=== PATIENT | male | born 1995 | race Hispanic/Latino ===

== ENCOUNTER 2017-11-22 20:58 | Emergency (ER) | payer SELFPAY ==
[2017-11-22] MEDS ORDERED: NA CHLORIDE 0.9% 1,000 ML ONE (21:41)
--- NOTE | 2017-11-22 21:45 | RAD REPORT ---
EXAM DESCRIPTION: RAD - Chest Pa And Lat (2 Views) - 11/22/2017 9:26 pm CLINICAL HISTORY: Shortness of breath COMPARISON: None. TECHNIQUE: PA and lateral views of the chest were obtained. FINDINGS: The lungs are clear. Heart size is normal and central vasculature is within normal limit s. No pleural effusion or pneumothorax seen. No acute bony finding noted. No aortic abnormality. IMPRESSION: No acute cardiopulmonary process.
[2017-11-22 21:52] LABS: Urine Blood NEGATIVE (NEG); Urine Glucose NEGATIVE (NEG); Urine Protein 2+ (NEG); Urine Specific Gravity >1.030 (1.005-1.030); Urine pH 5.5 (5.0-7.0)
[2017-11-22 21:52] LABS: Absolute Lymphocytes (CBC) 2.6 K/uL (0.7-4.9); Absolute Monocytes 0.8 K/uL (0.1-1.3); Absolute Neutrophil 5.4 K/uL (1.8-8.0); Basophils % 0.5 % (0-1.3); Eosinophils % 1.3 % (0-4.4); Hematocrit 43.3 % (39.6-49.0); Lymphocytes % 29.1 % (15.3-44.8); MCH 29.7 pg (27.0-35.0); MCV 87.3 fL (80-100); MPV 10.2 fL (7.6-11.3); Monocytes % 8.7 % (3.3-12.3); RBC Red Blood Cell Count 4.96 M/uL (4.33-5.43)
[2017-11-22 21:56] LABS: Urine Bacteria <20 /HPF (NONE SEEN); Urine RBC <5 /HPF (NONE SEEN)
[2017-11-22 21:57] LABS: Urine Culture Reflex Order NOT NEEDED
[2017-11-22 22:49] LABS: ALT/SGPT 92 U/L (12-78); AST/SGOT 42 U/L (15-37); Alkaline Phosphatase 136 U/L (45-117); BUN Blood Urea Nitrogen 13 mg/dL (7-18); Bicarbonate 26 mmol/L (21-32); Bilirubin Direct 0.1 mg/dL (0-0.2); Bilirubin Total 0.4 mg/dL (0.2-1.0); Creatine Phosphokinase 213 U/L (39-308); Glucose Level 91 mg/dL (74-106); Lipase 119 U/L (73-393); Potassium 3.1 mmol/L (3.5-5.1); Protein, Total 8.1 g/dL (6.4-8.2); Sodium Level 141 mmol/L (136-145)
[2017-11-22] MEDS ORDERED: POTASSIUM 25 MEQ EFFERV TAB ONE (23:02)
--- NOTE | 2017-11-22 23:07 | EDPHYS ---
Physician Documentation [facility] Name: Kunal North Age: 22 yrs Sex: Male : 1995 Arrival Date: 11/22/2017 Time: 21:01 Bed 19 Private MD: ED Physician Tigre Farris HPI: 11/22 23:14 This 22 yrs old Male presents to ER via Ambulatory with complaints of snw Shortness Of Breath, Dizziness. 23:14 The patient has shortness of breath at rest. Onset: The symptoms/episode began/occurred snw suddenly. Duration: The symptoms are continuous. The patient's shortness of breath is aggravated by exertion, walking. Associated signs and symptoms: Pertinent positives: dizziness, palpitations. Severity of symptoms: At their worst the symptoms were moderate severe in the emergency department the symptoms have improved. The patient has not experienced similar symptoms in the past. The patient has not recently seen a physician. pt took a fat burner and played in the sun and heat all day. When he sat down in his vehicle he began having palpitations, chest discomfort, and shortness of breath.. Historical: - Allergies: 21:11 No Known Allergies; bp - Home Meds: 21:11 None [Active]; bp - PMHx: 21:11 None; bp - Immunization history:: Adult Immunizations up to date. - Social history:: Smoking status: Patient/guardian denies using tobacco. - Ebola Screening: : Patient negative for fever greater than or equal to 101.5 degrees Fahrenheit, and additional compatible Ebola Virus Disease symptoms Patient denies exposure to infectious person Patient denies travel to an Ebola-affected area in the 21 days before illness onset No symptoms or risks identified at this time. ROS: 23:15 Eyes: Negative for injury, pain, redness, and discharge, ENT: Negative for injury, snw pain, and discharge, Neck: Negative for injury, pain, and swelling, Abdomen/GI: Negative for abdominal pain, nausea, vomiting, diarrhea, and constipation, Back: Negative for injury and pain, : Negative for injury, bleeding, discharge, and swelling, MS/Extremity: Negative for injury and deformity, Skin: Negative for injury, rash, and discoloration. 23:15 Constitutional: Positive for body aches, malaise, poor PO intake. 23:15 Cardiovascular: Positive for chest pain, palpitations. 23:15 Respiratory: Positive for shortness of breath, at rest. 23:15 Neuro: Positive for dizziness. Exam: 23:12 Constitutional: This is a well developed, well nourished patient who is awake, alert, snw and in no acute distress. Head/Face: Normocephalic, atraumatic. Eyes: Pupils equal round and reactive to light, extra-ocular motions intact. Lids and lashes normal. Conjunctiva and sclera are non-icteric and not injected. Cornea within normal limits. Periorbital areas with no swelling, redness, or edema. ENT: Nares patent. No nasal discharge, no septal abnormalities noted. Tympanic membranes are normal and external auditory canals are clear. Oropharynx with no redness, swelling, or masses, exudates, or evidence of obstruction, uvula midline. Mucous membranes moist. Neck: Trachea midline, no thyromegaly or masses palpated, and no cervical lymphadenopathy. Supple, full range of motion without nuchal rigidity, or vertebral point tenderness. No Meningismus. Chest/axilla: Normal chest wall appearance and motion. Nontender with no deformity. No lesions are appreciated. 23:12 Respiratory: Lungs have equal breath sounds bilaterally, clear to auscultation and percussion. No rales, rhonchi or wheezes noted. No increased work of breathing, no retractions or nasal flaring. Abdomen/GI: Soft, non-tender, with normal bowel sounds. No distension or tympany. No guarding or rebound. No evidence of tenderness throughout. Back: No spinal tenderness. No costovertebral tenderness. Full range of motion. Skin: Warm, dry with normal turgor. Normal color with no rashes, no lesions, and no evidence of cellulitis. MS/ Extremity: Pulses equal, no cyanosis. Neurovascular intact. Full, normal range of motion. Neuro: Awake and alert, GCS 15, oriented to person, place, time, and situation. Cranial nerves II-XII grossly intact. Motor strength 5/5 in all extremities. Sensory grossly intact. Cerebellar exam normal. Normal gait. Psych: Awake, alert, with orientation to person, place and time. Behavior, mood, and affect are within normal limits. 23:12 Cardiovascular: Rate: tachycardic, Rhythm: regular, Pulses: no pulse deficits are appreciated, Heart sounds: normal. Vital Signs: 21:11 BP 139 / 84; Pulse 121; Resp 24; Temp 98; Pulse Ox 98% ; Weight 106.59 kg; Height 6 ft. bp 0 in. (182.88 cm); 21:43 BP 121 / 68; Pulse 106; Resp 20; Pulse Ox 97% on R/A; rv 22:15 BP 140 / 84; Pulse 95; Resp 16; Pulse Ox 99% on R/A; rv 22:57 BP 118 / 64; Pulse 89; Resp 17; Pulse Ox 99% ; rv 21:11 Body Mass Index 31.87 (106.59 kg, 182.88 cm) bp MDM: 21:08 Patient medically screened. snw 23:13 Data reviewed: vital signs, nurses notes. Data interpreted: Pulse oximetry: on room air snw is 99 %. Interpretation: normal. Counseling: I had a detailed discussion with the patient and/or guardian regarding: the historical points, exam findings, and any diagnostic results supporting the discharge/admit diagnosis, lab results, the need for outpatient follow up, to return to the emergency department if symptoms worsen or persist or if there are any questions or concerns that arise at home. Response to treatment: the patient's symptoms have resolved after treatment, the patient's blood pressure is in an acceptable range, the patient is not short of breath, the patient is not tachycardic, the patient's pain is gone. Response to treatment: patient is well hydrated. Special discussion: Based on the history and exam findings, there is no indication for further emergent testing or inpatient evaluation. I discussed with the patient/guardian the need to see the primary care provider for further evaluation of the symptoms. 11/22 21: Order name: Basic Metabolic Panel; Complete Time: 22:57 snw 11/22 21: Order name: CBC with Diff; Complete Time: 21:54 snw 11/22 21: Order name: Hepatic Function; Complete Time: 22:57 snw 11/22 21: Order name: Lipase; Complete Time: 22:57 snw 11/22 21: Order name: Urine Microscopic Only; Complete Time: 21:57 snw 11/22 21:27 Order name: CPK; Complete Time: 22:57 snw 11/22 21:08 Order name: Chest Pa And Lat (2 Views) XRAY; Complete Time: 21:54 snw 11/22 21:27 Order name: IV Saline Lock; Complete Time: 21:42 snw 11/22 21:27 Order name: Labs collected and sent; Complete Time: 21:42 snw 11/22 21:27 Order name: Urine Dipstick-Ancillary (obtain specimen); Complete Time: 21:42 snw 11/22 21:36 Order name: Urine Dipstick--Ancillary (enter results) ms 11/22 21:36 Order name: Urine Dipstick-Ancillary; Complete Time: 21:54 EDMS Administered Medications: 21:42 Drug: NS 0.9% 1000 ml Route: IV; Rate: 1 bolus; Site: right antecubital; rv 22:59 Follow up: IV Status: Completed infusion rv 23:02 Drug: Potassium Effervescent Tablet 50 mEq Route: PO; rv 23:25 Follow up: Response: No adverse reaction bp Disposition: 23:33 Co-signature as Attending Physician, Tigre Farris MD. rn Disposition: 11/22/17 23:06 Discharged to Home. Impression: Heat fatigue, transient, Hypokalemia. - Condition is Stable. - Discharge Instructions: Potassium Content of Foods, Fatigue, Heat-Related Illness, Hypokalemia, Rehydration, Adult. - Medication Reconciliation Form, Thank You Letter, Antibiotic Education, Prescription Opioid Use form. - Follow up: Private Physician; When: 2 - 3 days; Reason: Recheck today's complaints, Continuance of care, Re-evaluation by your physician. Follow up: Emergency Department; When: As needed; Reason: Worsening of condition. Signatures: Dispatcher [employer] EDWI Shey Hua, FARM MACHINERY ENGINE MECHANIC-C FARM MACHINERY ENGINE MECHANIC-Csnw Tigre Farris MD MD rn Peltier, Brian, RN RN bp Segundo Alcaraz, RN RN rv Corrections: (The following items were deleted from the chart) 23:28 23:06 11/22/2017 23:06 Discharged to Home. Impression: Heat fatigue, transient; bp Hypokalemia. Condition is Stable. Forms are Medication Reconciliation Form, Thank You Letter, Antibiotic Education, Prescription Opioid Use. Follow up: Private Physician; When: 2 - 3 days; Reason: Recheck today's complaints, Continuance of care, Re-evaluation by your physician. Follow up: Emergency Department; When: As needed; Reason: Worsening of condition. snw
--- NOTE | 2017-11-22 23:07 | ER ---
Nurse's Notes [facility] Name: Kunal North Age: 22 yrs Sex: Male : 1995 Arrival Date: 11/22/2017 Time: 21:01 Bed 19 Private MD: Diagnosis: Heat fatigue, transient;Hypokalemia Presentation: 11/22 21:10 Presenting complaint: Patient states: AFTER I WAS DOING EXERCISE OUTSIDE I STARTED bp GETTING SHORT OF BREATH AND FEELING LIGHT HEADED. Transition of care: patient was not received from another setting of care. Onset of symptoms was November 22, 2017 at 19:00. Risk Assessment: Do you want to hurt yourself or someone else? Patient reports no desire to harm self or others. Initial Sepsis Screen: Does the patient meet any 2 criteria? No. Patient's initial sepsis screen is negative. Does the patient have a suspected source of infection? No. Patient's initial sepsis screen is negative. Care prior to arrival: None. 21:10 Method Of Arrival: Ambulatory bp 21:10 Acuity: JEREMIAS 4 bp Triage Assessment: 21:11 General: Appears in no apparent distress. comfortable, Behavior is cooperative, bp appropriate for age, anxious. Pain: Denies pain. EENT: No deficits noted. Neuro: Level of Consciousness is awake, alert, obeys commands, Oriented to person, place, time, situation, Appropriate for age. Cardiovascular: Rhythm is sinus tachycardia. Respiratory: Reports shortness of breath at rest Onset: The symptoms/episode began/occurred suddenly, the patient has mild shortness of breath. GI: No signs and/or symptoms were reported involving the gastrointestinal system. : No signs and/or symptoms were reported regarding the genitourinary system. Derm: Skin is clammy, Skin temperature is cool. Musculoskeletal: Circulation, motion, and sensation intact. Range of motion: intact in all extremities. Historical: - Allergies: 21:11 No Known Allergies; bp - Home Meds: 21:11 None [Active]; bp - PMHx: 21:11 None; bp - Immunization history:: Adult Immunizations up to date. - Social history:: Smoking status: Patient/guardian denies using tobacco. - Ebola Screening: : Patient negative for fever greater than or equal to 101.5 degrees Fahrenheit, and additional compatible Ebola Virus Disease symptoms Patient denies exposure to infectious person Patient denies travel to an Ebola-affected area in the 21 days before illness onset No symptoms or risks identified at this time. Screenin:14 Abuse screen: Denies threats or abuse. Denies injuries from another. Nutritional bp screening: No deficits noted. Tuberculosis screening: No symptoms or risk factors identified. Fall Risk None identified. Assessment: 21:13 General: SEE TRIAGE NOTE. Cardiovascular: Rhythm is sinus tachycardia. Respiratory: bp Airway is patent Respiratory effort is even, unlabored, Breath sounds are clear bilaterally. 22:16 Reassessment: Patient appears in no apparent distress at this time. Patient and/or rv family updated on plan of care and expected duration. Pain level reassessed. Patient is alert, oriented x 3, equal unlabored respirations, skin warm/dry/pink. patient comfortably lying on bed. vitals signs are stable. 23:26 Reassessment: PT D/C HOME AMBULATORY, DX WITH TRANSIENT HEAT FATIGUE. bp Vital Signs: 21:11 BP 139 / 84; Pulse 121; Resp 24; Temp 98; Pulse Ox 98% ; Weight 106.59 kg; Height 6 ft. bp 0 in. (182.88 cm); 21:43 BP 121 / 68; Pulse 106; Resp 20; Pulse Ox 97% on R/A; rv 22:15 BP 140 / 84; Pulse 95; Resp 16; Pulse Ox 99% on R/A; rv 22:57 BP 118 / 64; Pulse 89; Resp 17; Pulse Ox 99% ; rv 21:11 Body Mass Index 31.87 (106.59 kg, 182.88 cm) bp ED Course: 21:01 Patient arrived in ED. es 21:08 Shey Hua FNP-C is PHCP. snw 21:08 Tigre Farris MD is Attending Physician. snw 21:09 Gio Smalls, FAVIOLA is Primary Nurse. bp 21:11 Triage completed. bp 21:11 Arm band placed on. bp 21:14 Patient has correct armband on for positive identification. Bed in low position. Call bp light in reach. Side rails up X2. 21:20 Patient moved to radiology via wheelchair. kp1 21:24 X-ray completed. Patient tolerated procedure well. kp1 21:25 Chest Pa And Lat (2 Views) XRAY In Process Unspecified. EDMS 21:42 Urine Dipstick--Ancillary (enter results) Sent. aa1 23:26 No provider procedures requiring assistance completed. IV discontinued, intact, bp bleeding controlled, No redness/swelling at site. Pressure dressing applied. Administered Medications: 21:42 Drug: NS 0.9% 1000 ml Route: IV; Rate: 1 bolus; Site: right antecubital; rv 22:59 Follow up: IV Status: Completed infusion rv 23:02 Drug: Potassium Effervescent Tablet 50 mEq Route: PO; rv 23:25 Follow up: Response: No adverse reaction bp Outcome: 23:06 Discharge ordered by . lore 23:27 Discharged to home ambulatory. bp 23:27 Condition: stable 23:27 Discharge instructions given to patient, Instructed on discharge instructions, follow up and referral plans. Demonstrated understanding of instructions, follow-up care. 23:28 Patient left the ED. bp Signatures: Dispatcher [employer] Keerthi Weems RN RN aa1 Shey Hua, DIVISION TRAFFIC SUPERINTENDENT-C DIVISION TRAFFIC SUPERINTENDENT-Csnw Estee Lewis Kathy kp1 Gio Smalls, RN RN bp Segundo Alcaraz, RN RN rv
== END 2017-11-22 23:28 | disposition home or self-care (01) ==
LOC: ER 20:58
DX: T67.6XXA Heat fatigue, transient, initial encounter (principal); E87.6 Hypokalemia; X58.XXXA Exposure to other specified factors, initial encounter; Y93.89 Activity, other specified; Y92.89 Other specified places as the place of occurrence of the external cause; Y99.9 Unspecified external cause status
CPT/HCPCS: 36415; 71046; 80048; 80076; 81003; 81015; 82550; 83690; 85025; 96360; 99284; J7030